=== PATIENT | female | born 1940 | race Two or more races ===

== ENCOUNTER 2023-01-17 18:00 | Inpatient (IN) | payer OTHER ==
[~2023-01-17] VITALS: Ht 172.7 cm; Wt 92.2 kg
[2023-01-17 19:23] LABS: Basophils # (auto) 0 10 ^3/uL (0-0.2); Eosinophils # (auto) 0 10 ^3/uL (0-0.8); Eosinophils % (auto) 0.1 % (0.0-7.0); Hemoglobin 12.5 g/dL (12.2-16.2); Lymphocytes # (auto) 0.9 10 ^3/uL (0.4-5.4); Lymphocytes % (auto) 23.3 % (10.0-50.0); Mean Corpuscular Hemoglobin 29.3 pg (28.0-32.0); Mean Corpuscular Volume 91.4 fL (80.0-100.0); Monocytes # (auto) 0.6 10 ^3/uL (0-1.3); Monocytes % (auto) 16.2 % (0.0-12.0); Neutrophils # (auto) 2.3 10 ^3/uL (1.6-8.6); Neutrophils % (auto) 59.4 % (37.0-80.0); Red Blood Cells 4.26 10^6/uL (4.0-5.20); Red Cell Distribution Width 15.5 % (11.8-14.3); White Blood Cell 3.8 10^3/uL (4.4-10.8)
[2023-01-17 19:30] LABS: Nucleated Red Blood Cells % 5.7 %
[2023-01-17 19:49] LABS: Potassium 4.9 mmol/L (3.5-5.1)
[2023-01-17 19:52] LABS: BUN/Creatinine Ratio 32.2 (10.0-20.0); Bilirubin, Total 0.4 mg/dL (0.2-1.0); Total Protein 6.5 g/dL (6.4-8.2)
[2023-01-17] MEDS ORDERED: ACETAMINOPHEN 325 MG TAB PO PRN (22:45)
[2023-01-17] MEDS ORDERED: DOCUSATE SOD 100 MG CAP PO PRN (22:45)
[2023-01-17] MEDS ORDERED: ONDANSETRON HCL 4 MG/2 ML VIAL IV PRN (22:45)
[2023-01-17] MEDS ORDERED: DEXTROSE (50%) 50ML SYRG IV PRN (22:45)
[2023-01-17] MEDS ORDERED: methylPREDNISolone SOD SUCC 125 MG/2 ML VL IV ONE (23:30)
[2023-01-17] MEDS: SODIUM CHLORIDE 0.9% 1,000 ML IV SCH (23:43)
[2023-01-17] MEDS ORDERED: MORPHINE SULFATE INJ 2 MG/ml SYRG IV PRN (23:45)
[2023-01-17] MEDS ORDERED: NITROGLYCERIN 0.4 MG SL TAB SL PRN (23:45)
[2023-01-18 01:36] LABS: Urine Bacteria FEW /hpf (None Seen); Urine Blood Negative /uL (Negative); Urine Specific Gravity 1.012 (1.001-1.035); Urine WBC 1 /hpf (0 - 5)
[2023-01-18] MEDS: DOXYCYCLINE 100MG/250ML 250 ML IV SCH ×2 (05:07→17:04)
[2023-01-18 05:56] LABS: Basophils # (auto) 0 10 ^3/uL (0-0.2); Basophils % (auto) 0.3 % (0.0-2.0); Eosinophils # (auto) 0 10 ^3/uL (0-0.8); Hematocrit 41.8 % (36.0-46.0); Hemoglobin 13.8 g/dL (12.2-16.2); Lymphocytes # (auto) 0.5 10 ^3/uL (0.4-5.4); Lymphocytes % (auto) 13.6 % (10.0-50.0); Mean Corpuscular Hemoglobin 30.5 pg (28.0-32.0); Mean Corpuscular Volume 92.4 fL (80.0-100.0); Monocytes # (auto) 0.2 10 ^3/uL (0-1.3); Monocytes % (auto) 3.9 % (0.0-12.0); Neutrophils # (auto) 3.3 10 ^3/uL (1.6-8.6); Neutrophils % (auto) 82.2 % (37.0-80.0); Red Blood Cells 4.52 10^6/uL (4.0-5.20); Red Cell Distribution Width 15.6 % (11.8-14.3)
[2023-01-18] MEDS: HEPARIN SODIUM (PORCINE) 5000 UNITS/ML 1ML VIAL SC SCH ×3 (05:56→23:13)
[2023-01-18] MEDS: ALBUTEROL SULF HFA 90MCG INH 200DOSE IN SCH ×2 (06:00→21:19)
[2023-01-18 06:27] LABS: Potassium 5.3 mmol/L (3.5-5.1)
[2023-01-18 06:35] LABS: Albumin 3.2 g/dL (3.4-5.0); BUN/Creatinine Ratio 34.9 (10.0-20.0); Bilirubin, Total 0.6 mg/dL (0.2-1.0); Calcium 10.4 mg/dL (8.5-10.1); Total Protein 7.4 g/dL (6.4-8.2)
[2023-01-18] MEDS: ACCU-CHEK COMFORT CURVE STRIP VI SCH ×4 (06:49→23:08)
[2023-01-18] MEDS: InsuLIN REG 1unit/0.01ml Soln (100units/ml) SC SCH ×4 (06:53→23:14)
[2023-01-18 07:27] VITALS: BP 153/126
[2023-01-18] MEDS: BUDESONIDE (INHALATION) 180 MCG IH IN SCH ×2 (10:00→21:19)
[2023-01-18] MEDS ORDERED: CHOLECALCIFEROL (VITD3) 1,000UNIT=25mCg TAB PO SCH (10:00)
[2023-01-18] MEDS: ASCORBIC ACID 500 MG TAB PO SCH ×2 (10:12→23:08)
[2023-01-18] MEDS: ZINC SULFATE 220mg CAP or TAB PO SCH (10:12)
[2023-01-18] MEDS: FAMOTIDINE (10MG/ML) 2ML VL IV SCH (10:12)
[2023-01-18] MEDS: DexAMETHasone SOD PHOS 10MG/1ML VIAL INJ IV SCH (10:12)
[2023-01-18] MEDS: CHOLECALCIFEROL (VITD3) 2,000 UNIT CAP/TAB PO SCH (10:13)
[2023-01-18] MEDS: ASPirin 81 mg TAB PO SCH (10:13)
[2023-01-18] MEDS: MULTIPLE VITAMIN TAB PO SCH (10:39)
[2023-01-18] MEDS ORDERED: SODIUM ZIRCONIUM CYCL 10 GM PAK PO ONE (13:30)
[2023-01-18] MEDS: SODIUM CHLORIDE 0.9% 1,000 ML IV SCH (17:05)
[2023-01-18 17:14] LABS: Urine Bacteria FEW /hpf (None Seen); Urine Blood Negative /uL (Negative); Urine Hyaline Cast FEW /lpf (0 - 2); Urine Specific Gravity 1.013 (1.001-1.035); Urine WBC 1 /hpf (0 - 5)
[2023-01-18 17:32] LABS: Protein, Urine 24.7 mg/dL (0.0-11.9)
[2023-01-18] MEDS: ATORVASTATIN 20 MG TAB PO SCH (23:07)
[2023-01-18 23:45] VITALS: BP 138/98
[2023-01-19] MEDS: DOXYCYCLINE 100MG/250ML 250 ML IV SCH (04:38)
[2023-01-19 05:00] VITALS: BP 125/71
[2023-01-19] MEDS: ACCU-CHEK COMFORT CURVE STRIP VI SCH ×4 (06:42→22:51)
[2023-01-19] MEDS: InsuLIN REG 1unit/0.01ml Soln (100units/ml) SC SCH ×4 (06:43→22:53)
[2023-01-19 06:44] LABS: Hematocrit 38.6 % (36.0-46.0); Hemoglobin 12.7 g/dL (12.2-16.2); Mean Corpuscular Hemoglobin 30.4 pg (28.0-32.0); Mean Corpuscular Hgb Conc. 32.8 g/dL (32.0-36.0); Mean Corpuscular Volume 92.6 fL (80.0-100.0); Red Blood Cells 4.17 10^6/uL (4.0-5.20); Red Cell Distribution Width 15.8 % (11.8-14.3); White Blood Cell 2.3 10^3/uL (4.4-10.8)
[2023-01-19] MEDS: HEPARIN SODIUM (PORCINE) 5000 UNITS/ML 1ML VIAL SC SCH ×3 (06:44→22:36)
[2023-01-19 06:47] LABS: BUN/Creatinine Ratio 39.3 (10.0-20.0); Calcium 10.3 mg/dL (8.5-10.1); Phosphorus 3.2 mg/dL (2.5-4.90); Potassium 4.6 mmol/L (3.5-5.1); Uric Acid 8.6 mg/dL (2.6-6.0)
[2023-01-19] MEDS: ALBUTEROL SULF HFA 90MCG INH 200DOSE IN SCH ×3 (06:55→23:00)
[2023-01-19] MEDS: BUDESONIDE (INHALATION) 180 MCG IH IN SCH ×2 (06:56→23:00)
[2023-01-19 07:23] LABS: Basophils % (manual) 0 (0.0-2.0); Blast Cells 0; Eosinophils % (manual) 0 (0-7); Metamyelocytes % 0; Myelocytes % 0; Promyelocytes % 0; Reactive Lymphocytes 0
[2023-01-19] MEDS: SODIUM CHLORIDE 0.9% 1,000 ML IV SCH (08:05)
[2023-01-19] MEDS: cefTRIAXone 1GM/50ML D5W 50 ML IV SCH (08:23)
[2023-01-19 09:00] VITALS: BP 130/51
[2023-01-19] MEDS: ASCORBIC ACID 500 MG TAB PO SCH (09:46)
[2023-01-19] MEDS: FAMOTIDINE (10MG/ML) 2ML VL IV SCH (09:46)
[2023-01-19] MEDS: ASPirin 81 mg TAB PO SCH (09:47)
[2023-01-19] MEDS: MULTIPLE VITAMIN TAB PO SCH (09:47)
[2023-01-19] MEDS: ZINC SULFATE 220mg CAP or TAB PO SCH (09:47)
[2023-01-19] MEDS: CHOLECALCIFEROL (VITD3) 2,000 UNIT CAP/TAB PO SCH (09:47)
[2023-01-19] MEDS: DexAMETHasone SOD PHOS 10MG/1ML VIAL INJ IV SCH (09:47)
[2023-01-19] MEDS: AZITHROMYCIN 500MG/ 250ML 250 ML IV SCH (10:08)
[2023-01-19 11:54] LABS: Band Neutrophils % (manual) 4; Lymphocytes % (manual) 7 (10.0-50.0); Monocytes % (manual) 8 (0-12)
[2023-01-19 13:00] VITALS: BP 161/60
[2023-01-19 17:00] VITALS: BP 122/64
[2023-01-19] MEDS ORDERED: AMOX500C2 PO (18:36)
[2023-01-19] MEDS ORDERED: INSU1INJ3 SC (18:36)
[2023-01-19] MEDS ORDERED: CARV25TA55 PO (18:36)
[2023-01-19] MEDS ORDERED: DILT-100 PO (18:36)
[2023-01-19] MEDS ORDERED: DILT-29 PO (18:36)
[2023-01-19] MEDS: Glucerna Carbsteady SHAKE Vanilla 8oz PO SCH (18:43)
[2023-01-19 22:00] VITALS: BP 155/67
[2023-01-19] MEDS: ATORVASTATIN 20 MG TAB PO SCH (22:35)
[2023-01-20 05:00] VITALS: BP 158/84
[2023-01-20 06:07] LABS: Hemoglobin 12.8 g/dL (12.2-16.2); Mean Corpuscular Hemoglobin 30.2 pg (28.0-32.0); Mean Corpuscular Hgb Conc. 32.9 g/dL (32.0-36.0); Mean Corpuscular Volume 91.7 fL (80.0-100.0); Red Blood Cells 4.25 10^6/uL (4.0-5.20); Red Cell Distribution Width 15.7 % (11.8-14.3); White Blood Cell 2.7 10^3/uL (4.4-10.8)
[2023-01-20] MEDS: ACCU-CHEK COMFORT CURVE STRIP VI SCH ×4 (06:12→22:38)
[2023-01-20] MEDS: InsuLIN REG 1unit/0.01ml Soln (100units/ml) SC SCH ×4 (06:15→22:39)
[2023-01-20] MEDS: HEPARIN SODIUM (PORCINE) 5000 UNITS/ML 1ML VIAL SC SCH ×3 (06:28→22:31)
[2023-01-20] MEDS: ALBUTEROL SULF HFA 90MCG INH 200DOSE IN SCH ×3 (06:43→18:30)
[2023-01-20] MEDS: BUDESONIDE (INHALATION) 180 MCG IH IN SCH ×2 (06:43→18:30)
[2023-01-20 06:55] LABS: Band Neutrophils % (manual) 0; Basophils % (manual) 0 (0.0-2.0); Blast Cells 0; Eosinophils % (manual) 0 (0-7); Metamyelocytes % 0; Myelocytes % 0; Promyelocytes % 0
[2023-01-20 08:00] VITALS: BP 188/68
[2023-01-20] MEDS: Glucerna Carbsteady SHAKE Vanilla 8oz PO SCH ×3 (08:45→18:00)
[2023-01-20 08:50] LABS: Potassium 4.5 mmol/L (3.5-5.1)
[2023-01-20] MEDS: ASPirin 81 mg TAB PO SCH (08:51)
[2023-01-20] MEDS: ZINC SULFATE 220mg CAP or TAB PO SCH (08:51)
[2023-01-20 08:55] LABS: BUN/Creatinine Ratio 42.7 (10.0-20.0); Calcium 10.8 mg/dL (8.5-10.1)
[2023-01-20 09:00] VITALS: BP 188/68
[2023-01-20] MEDS: CHOLECALCIFEROL (VITD3) 2,000 UNIT CAP/TAB PO SCH (09:05)
[2023-01-20] MEDS: MULTIPLE VITAMIN TAB PO SCH (09:05)
[2023-01-20 09:25] LABS: Lymphocytes % (manual) 21 (10.0-50.0); Monocytes % (manual) 16 (0-12); Reactive Lymphocytes 1
[2023-01-20] MEDS: cefTRIAXone 1GM/50ML D5W 50 ML IV SCH (09:36)
[2023-01-20] MEDS: AZITHROMYCIN 500MG/ 250ML 250 ML IV SCH (11:51)
[2023-01-20] MEDS: dilTIAZem HCL 180MG ER CAP PO SCH (12:11)
[2023-01-20 13:00] VITALS: BP 179/71
[2023-01-20 20:00] VITALS: BP 186/60
[2023-01-20] MEDS: ATORVASTATIN 20 MG TAB PO SCH (22:28)
[2023-01-21 05:38] VITALS: BP 183/87
[2023-01-21] MEDS: HEPARIN SODIUM (PORCINE) 5000 UNITS/ML 1ML VIAL SC SCH ×2 (06:24→17:21)
[2023-01-21] MEDS: ACCU-CHEK COMFORT CURVE STRIP VI SCH ×3 (06:24→17:22)
[2023-01-21] MEDS: InsuLIN REG 1unit/0.01ml Soln (100units/ml) SC SCH ×3 (06:24→18:33)
[2023-01-21] MEDS: ALBUTEROL SULF HFA 90MCG INH 200DOSE IN SCH ×2 (06:37→15:08)
[2023-01-21] MEDS: BUDESONIDE (INHALATION) 180 MCG IH IN SCH (06:38)
[2023-01-21 06:40] LABS: Calcium 10.7 mg/dL (8.5-10.1); Potassium 4.2 mmol/L (3.5-5.1)
[2023-01-21 06:42] LABS: BUN/Creatinine Ratio 37.2 (10.0-20.0)
[2023-01-21 08:46] VITALS: BP 183/87
[2023-01-21 08:48] VITALS: BP 170/71
[2023-01-21] MEDS: Glucerna Carbsteady SHAKE Vanilla 8oz PO SCH ×3 (09:29→18:32)
[2023-01-21] MEDS: ZINC SULFATE 220mg CAP or TAB PO SCH (09:30)
[2023-01-21] MEDS: ASPirin 81 mg TAB PO SCH (09:30)
[2023-01-21] MEDS: AZITHROMYCIN 500MG/ 250ML 250 ML IV SCH (09:30)
[2023-01-21] MEDS: cefTRIAXone 1GM/50ML D5W 50 ML IV SCH (09:30)
[2023-01-21] MEDS: CHOLECALCIFEROL (VITD3) 2,000 UNIT CAP/TAB PO SCH (09:31)
[2023-01-21] MEDS: MULTIPLE VITAMIN TAB PO SCH (09:31)
[2023-01-21] MEDS: dilTIAZem HCL 180MG ER CAP PO SCH (09:31)
[2023-01-21] MEDS: hydrALAZINE HCL 20 MG/ML VL IV PRN ×2 (11:44→18:33)
[2023-01-21 12:55] VITALS: BP 172/68
[2023-01-21 17:00] VITALS: BP 160/52
[2023-01-21 18:23] VITALS: BP 176/93
[2023-01-22] MEDS ORDERED: AZITHROMYCIN 250 MG TAB PO SCH (10:00)
== END 2023-01-21 20:00 | disposition short-term general hospital (02) | DRG 177 ==
LOC: EDBD 18:00 → ER 18:00 → TELE 23:36 → TELE-WESTW 01-18 21:40
PROVIDERS: ADMIT Nurse Practitioner Family; ATTEND Internal Medicine
DX: U07.1 COVID-19 (principal); G92.8 Other toxic encephalopathy; J12.82 Pneumonia due to coronavirus disease 2019; J96.01 Acute respiratory failure with hypoxia; N17.0 Acute kidney failure with tubular necrosis; E87.1 Hypo-osmolality and hyponatremia; E11.65 Type 2 diabetes mellitus with hyperglycemia; E88.09 Other disorders of plasma-protein metabolism, not elsewhere classified; I10 Essential (primary) hypertension; R26.81 Unsteadiness on feet; Z79.899 Other long term (current) drug therapy; Z79.84 Long term (current) use of oral hypoglycemic drugs
CPT/HCPCS: 36415; 71045; 80048; 80053; 81001; 82306; 82570; 82962; 83036; 83880; 84100; 84156; 84300; 84443; 84484; 84550; 85007; 85025; 85027; 85379; 87426; 93005; 93306; 93970; 94640; 97163; G0378; J0696; J1100; J1815; J3490